=== PATIENT | female | born 1950 | race Caucasian/White ===

== ENCOUNTER → 2020-08-03 09:32 | Outpatient (CLI) | payer MEDICARE, OTHER, SELFPAY ==
[2020-08-03 12:22] LABS: Vitamin D,25 Hydroxy 48.6 ng/mL
[2020-08-03 12:32] LABS: ALB/GLOB Ratio 1.1 RATIO (0.9-2.4); AST(SGOT) 20 U/L (15-37); Alanine Aminotransfer ALT/SGPT 29 U/L (13-56); Alkaline Phosphatase 83 U/L (45-117); Anion Gap 6 (5-15); BUN 14 mg/dL (7-18); Calcium,Total 8.9 mg/dL (8.5-10.1); Chloride 99 mmol/L (98-107); Cholesterol 275 mg/dL (200); Creatinine, Serum 0.58 mg/dL (0.55-1.02); EST Glomerular Filtration Rate 109 mL/min (>60); Est Glom Filt Rate - Afr Amer 132 mL/min (>60); Globulin 3.6 g/dL (2.2-4.2); Glucose 107 mg/dL (74-106); High Density Lipoprotein 104 mg/dL; Potassium 3.5 mmol/L (3.5-5.1); Protein, Total 7.6 g/dL (6.4-8.2); Sodium Level 134 mmol/L (136-145); Thyroid Stim Hormone (TSH) 4.05 uIU/mL (0.358-3.74); Triglycerides 75 mg/dL; Very Low Density Lipoprotein 15 mg/dL (5-40)
[2020-08-03 12:33] LABS: Microalbumin,Random Urine 6.1 mg/L (NO RANGE EST.); Microalbumin:Creatinine Ratio 40.9 mg/g CRE (<30 mg/g CRE)
[2020-08-03 12:55] LABS: PTHIN 51.9 pg/mL (18.4-80.1)
[2020-08-09 10:06] LABS: T4 Free Direct 1.09 ng/dL (0.76-1.46)
== END ==
PROVIDERS: PCP Family Medicine; Referring Provider Family Medicine; Visit Provider Family Medicine
DX: M81.0 Age-related osteoporosis without current pathological fracture (principal); I10 Essential (primary) hypertension; E78.00 Pure hypercholesterolemia, unspecified
CPT/HCPCS: 36415; 80053; 80061; 82043; 82306; 82570; 83970; 84439; 84443

== ENCOUNTER 2020-09-24 12:35 | Outpatient (RCR) | payer MEDICARE, OTHER, SELFPAY | END 2020-10-29 23:59 | LOC: IMMUN 12:35 | PROVIDERS: PCP Family Medicine; Referring Provider Family Medicine; Visit Provider Family Medicine | DX: Z23 Encounter for immunization (principal) | CPT/HCPCS: 0001A; 91300 ==

== ENCOUNTER → 2020-11-03 08:39 | Outpatient (CLI) | payer MEDICARE, OTHER, SELFPAY ==
[2020-11-03 10:54] LABS: Anion Gap 8 (5-15); BUN 22 mg/dL (7-18); BUN/Creat Ratio 32.8 RATIO (10-20); Chloride 98 mmol/L (98-107); Creatinine, Serum 0.67 mg/dL (0.55-1.02); EST Glomerular Filtration Rate 93 mL/min (>60); Est Glom Filt Rate - Afr Amer 112 mL/min (>60); Glucose 118 mg/dL (74-106); Potassium 3.6 mmol/L (3.5-5.1); Sodium Level 134 mmol/L (136-145); T4 Free Direct 1.04 ng/dL (0.76-1.46); Thyroid Stim Hormone (TSH) 3.35 uIU/mL (0.358-3.74)
[2020-11-03 11:03] LABS: Microalbumin,Random Urine 6.4 mg/L (NO RANGE EST.); Microalbumin:Creatinine Ratio 8.6 mg/g CRE (<30 mg/g CRE)
== END ==
PROVIDERS: PCP Family Medicine; Visit Provider Family Medicine
DX: I10 Essential (primary) hypertension (principal); R80.9 Proteinuria, unspecified; R79.89 Other specified abnormal findings of blood chemistry
CPT/HCPCS: 36415; 80048; 82043; 82570; 84439; 84443

== ENCOUNTER → 2021-10-11 | Outpatient (CLI) | payer MEDICARE, OTHER, SELFPAY ==
[2021-10-11 13:50] LABS: Mucous, Urine 0 SEEN /hpf (<or=2+)
[2021-10-11 15:03] LABS: Color, Urine Yellow (Yellow); Glucose, Dipstick Normal (Normal); Ketone-Dipstick Negative (Negative); Leukocyte Esterase-Dipstick 500 /ul (Negative); Nitrite-Dipstick Negative (Negative); Occult Blood-Urine 250 /ul (Negative); Protein-Dipstick 30 mg/dl (Negative); Urine Bilirubin Dipstick Negative (Negative); Urine Clarity Cloudy (Clear); Urine Urobilinogen Normal (Normal)
[2021-10-11 15:19] LABS: Bacteria 1+ /hpf (None Seen); Red Blood Cells-Urine 5-10 SEEN /hpf (0-5); Squamous Epithelial Cells - UA 0-5 SEEN /hpf (5-10); White Blood Cells 25-50 SEEN /hpf (0-5)
== END | disposition home or self-care (01) ==
LOC: LABSPEC 13:48
PROVIDERS: PCP Family Medicine; Referring Provider Family Medicine; Visit Provider Family Medicine
DX: R35.0 Frequency of micturition (principal)
CPT/HCPCS: 81001; 87086; 87088; 87186

== ENCOUNTER → 2021-10-26 | Outpatient (CLI) | payer MEDICARE, OTHER, SELFPAY ==
[2021-10-26 10:38] LABS: Vitamin D,25 Hydroxy 135.5 ng/mL
[2021-10-26 10:48] LABS: ALB/GLOB Ratio 1.2 RATIO (0.9-2.4); AST(SGOT) 28 U/L (15-37); Alanine Aminotransfer ALT/SGPT 35 U/L (13-56); Albumin, Serum 4.1 g/dL (3.2-5.0); Alkaline Phosphatase 70 U/L (45-117); Anion Gap 7 (5-15); BUN 16 mg/dL (7-18); BUN/Creat Ratio 26.6 RATIO (10-20); Calcium,Total 9.4 mg/dL (8.5-10.1); Chloride 99 mmol/L (98-107); Cholesterol 282 mg/dL (200); EST Glomerular Filtration Rate 105 mL/min (>60); Est Glom Filt Rate - Afr Amer 127 mL/min (>60); Globulin 3.5 g/dL (2.2-4.2); Glucose 105 mg/dL (74-106); High Density Lipoprotein 78 mg/dL; Magnesium 2.2 mg/dL (1.6-2.6); Potassium 3.6 mmol/L (3.5-5.1); Protein, Total 7.6 g/dL (6.4-8.2); Sodium Level 134 mmol/L (136-145); Triglycerides 60 mg/dL; Very Low Density Lipoprotein 12 mg/dL (5-40)
== END | disposition home or self-care (01) ==
LOC: MFPLAB 09:26
PROVIDERS: PCP Family Medicine; Referring Provider Family Medicine; Visit Provider Family Medicine
DX: I10 Essential (primary) hypertension (principal); M81.0 Age-related osteoporosis without current pathological fracture; R80.9 Proteinuria, unspecified
CPT/HCPCS: 36415; 80053; 80061; 82306; 83735

== ENCOUNTER → 2021-10-27 | Outpatient (CLI) | payer MEDICARE, OTHER, SELFPAY ==
[2021-10-27 18:13] LABS: Creatinine, Urine (random) < 13.00 mg/dL (NO RANGE EST.); Microalbumin,Random Urine < 5.0 mg/L (NO RANGE EST.)
== END | disposition home or self-care (01) ==
LOC: MFPLAB 16:53
PROVIDERS: PCP Family Medicine; Referring Provider Family Medicine; Visit Provider Family Medicine
DX: I10 Essential (primary) hypertension (principal)
CPT/HCPCS: 82043; 82570

== ENCOUNTER 2021-11-29 15:39 | Emergency (ER) | payer MEDICARE, OTHER, SELFPAY ==
[2021-11-29 15:41] VITALS: BP 172/88; PULSE 99; RESP 16; TEMP 37.2; O2SAT 99; BMI 25.7
--- NOTE | 2021-11-29 15:56 | CT_ITS ---
EXAM: CT ANGIOGRAPHY CHEST WITHOUT AND WITH INTRAVENOUS CONTRAST CLINICAL INDICATION: pulmonary embolism TECHNIQUE: Helically acquired angiography images were obtained of the chest without and with intravenous contrast. This CT exam was performed using one or more of the following dose reduction techniques: automated exposure control, adjustment of the mA and/or kV according to patient size, and/or use of iterative reconstruction technique. This report was created using [employer] report generation technology. MIP reconstructed images were created and reviewed. CONTRAST: IV 100mL [id number] COMPARISON: None. FINDINGS: PULMONARY ARTERIES: Unremarkable. Normal in caliber. No evidence of pulmonary embolism. AORTA: Unremarkable. Normal in caliber. No evidence of dissection. GREAT VESSELS OF AORTIC ARCH: Unremarkable. Normal in caliber. No evidence of dissection. LUNGS AND PLEURAL SPACES: Unremarkable. No mass. No consolidation or edema. No pleural effusion or thickening. No pneumothorax. HEART: Unremarkable. Heart size is normal. No pericardial effusion. No signs of right heart strain, ratio of right ventricle to left ventricle measures less than 1. MEDIASTINUM: Unremarkable. No mediastinal or hilar adenopathy. Esophagus is unremarkable. No hiatal hernia. THYROID: Unremarkable. No thyroid lesions. BONES/JOINTS: Unremarkable. No suspicious lytic or blastic abnormality. CT/CTA Chest W/WO Contrast IMPRESSION: Negative CTA chest. Electronically Signed: Fercho Burgess MD at 17:58 EDT ,
--- NOTE | 2021-11-29 15:56 | EKG12_ITS ---
Test Reason : Blood Pressure : / mmHG Vent. Rate : 087 BPM Atrial Rate : 087 BPM P-R Int : 186 ms QRS Dur : 086 ms QT Int : 362 ms P-R-T Axes : 068 -07 042 degrees QTc Int : 435 ms Normal sinus rhythm Possible Left atrial enlargement Borderline ECG Confirmed by INES BUSH, DESTIN ([id number]), fashion editor ELIAS CALHOUN ([id number]) on 12/01/2021 12:56:31 PM Referred By: Tennille Confirmed By:DESTIN CHACON MD
--- NOTE | 2021-11-29 15:57 | ED.VIS.CHEST ---
HPI History of Present Illness Chief Complaint: Diarrhea Informant: patient and spouse/S.O. Narrative Narrative: 71-year old female presenting to the emergency room with COVID-19 concerns. Patient states she tested positive on the . She had been having sore throat for least a week before that but her test were negative. She has subsequently developed diarrhea each morning until today when it has been most of the day. She also notes a cough and chest tightness. She states that she had asthma years ago but has not needed any treatment in the subsequent years. She denies any prior DVT or PE. She has been drinking fluids but solid intake has been diminished. She did to have some Imodium today. [facility] Medical History COVID-19 HTN (hypertension) Home Medications ondansetron 4 mg disintegrating tablet 4 mg PO Q6H PRN PRN Nausea #15 tabs 11/29/21 [Rx Last Taken Unknown] Allergy/AdvReac Type Severity Reaction Status Date / Time lisinopril Allergy Hives Verified 11/29/21 15:44 Sulfa (Sulfonamide Allergy Hives Verified 11/29/21 15:44 Antibiotics) Social History (Updated 11/29/21 @ 15:[address] Enrico Buckner DO) current gender identity: female Smoking Status: Never smoker substance use type: does not use ROS ROS ED Constitutional Constitutional ED: Denies chills or weight loss Eyes Eyes: Denies change in vision or diplopia ENT ENT ED: Denies ear pain, rhinorrhea or sore throat Cardiovascular Cardiovascular: Reports as per HPI; Denies chest pain, orthopnea, palpitations or racing heartbeat Respiratory/Chest Respiratory/Chest: Reports cough; Denies dyspnea or orthopnea Gastrointestinal Gastrointestinal: Reports diarrhea and nausea; Denies abdominal pain or vomiting Genitourinary Genitourinary ED: Denies dysuria, hematuria or urinary frequency Musculoskeletal Musculoskeletal: Denies arthralgias or myalgias Integumentary Denies abscess or rash Neurologic Neurologic: Denies headache(s) or weakness Psychiatric Psychiatric: Denies anxiety, depression, suicidal ideation or suicidal thoughts Endocrine Endocrinology: Denies polydipsia, polyphagia or polyuria Allergic/Immunologic Allergic/Immunologic ED: Denies mouth swelling, tongue swelling or urticaria EXAM Physical Exam Const Vital Signs: 11/29/21 15:41 11/29/21 15:52 11/29/21 17:45 Temperature 99 F 96.6 F L Temperature Source Temporal Temporal Pulse Rate 99 91 Respiratory Rate 16 18 Respiratory Effort Normal Non-Labored Respiratory Pattern Normal Blood Pressure 172/88 H 137/67 H Blood Pressure Mean 116 90 Pulse Ox 99 96 Oxygen Delivery Method Room Air Room Air Positive well nourished and well developed General Appearance ED: well developed HEENT Reports normocephalic, head/scalp atraumatic and moist mucous membranes Eyes PERRL and EOMs intact bilaterally Neck no lymphadenopathy, supple and no JVD Resp normal respiratory effort and clear to auscultation bilaterally Cardio regular rhythm and no murmurs Rate: tachycardic GI normal to inspection, nondistended, normoactive bowel sounds and non-tender Palpation: soft Back/Spine no CVA tenderness and normal ROM Extremity normal to inspection General Extremety ED: Negative for edema General Extremity: Negative for edema Neuro oriented x3 and CN's II-XII intact bilaterally Sensorium / Orientation: alert Motor Exam: strength 5/5 throughout Psych mental status grossly normal Mood & Affect: Negative for depressed or tearful Skin no rashes or lesions noted and no wounds MDM MDM MDM Narrative Medical decision making narrative: White count 5.2 platelet count 199 hemoglobin 12.7. Sodium returned slightly low at 125. Potassium is normal. CTA of the chest demonstrates no pulmonary embolism or infiltrates. Patient received IV fluids I will write for Zofran at home. Continued supportive care Lab Data Attestation: I reviewed the patient's lab results. Labs: Laboratory Results - last 24 hr 11/29/21 11/29/21 16:10 16:10 WBC 5.2 RBC 4.03 L Hgb 12.7 Hct 35.7 L MCV 88.6 MCH 31.5 MCHC 35.6 RDW Std Deviation 38.2 RDW Coeff of Misti 11.9 Plt Count 199 MPV 9.9 Immature Gran % (Auto) 0.400 Neut % (Auto) 81.3 H Lymph % (Auto) 13.1 L Calvert % (Auto) 4.6 Eos % (Auto) 0.4 Baso % (Auto) 0.2 Absolute Neuts (auto) 4.2 Absolute Lymphs (auto) 0.68 L Nucleated RBC % 0 Sodium 125 L Potassium 3.8 Chloride 92 L Carbon Dioxide 24.0 Anion Gap 9 BUN 11 Creatinine 0.67 Estim Creat Clear Calc 45.85 Est GFR (MDRD) Af Amer 113 Est GFR (MDRD) Non-Af 93 BUN/Creatinine Ratio 16.5 Glucose 129 H Calcium 9.2 Total Bilirubin 0.90 AST 34 ALT 35 Alkaline Phosphatase 76 Troponin I High Sens 7 Total Protein 7.5 Albumin 4.0 Globulin 3.5 Albumin/Globulin Ratio 1.1 Radiography Diagnostic Testing: Clinical Impression(s) from Imaging Studies Chest CTA 11/29/21 15:56 IMPRESSION: Negative CTA chest. Electronically Signed: Fercho Burgess MD at 17:58 EDT , EKG Initial EKG: Attestation: I personally reviewed and interpreted this EKG as follows: Comments: Normal sinus rhythm with a ventricular rate of 87 bpm. Discharge Plan Triage Chief Complaint: Diarrhea Other Complaint: Chest Other ED Provider: Enrico Buckner Dx/Rx/DC Orders Clinical Impression: COVID-19, Chest tightness, Diarrhea, Nausea Instructions: Coronavirus Disease 2019 (COVID-19): Caring for Yourself or Others Prescriptions: New ondansetron [ondansetron] 4 mg tablet,disintegrating 4 mg PO Q6H PRN PRN (Reason: Nausea) Qty: 15 0RF Primary Care Provider: Jimbo Ball Referrals: Jimbo Ball MD [Primary Care Provider] - As Needed Disposition Disposition: Home, Self Care
--- NOTE | 2021-11-29 15:59 | NURSING ---
NO OLD EKGS
[2021-11-29] MEDS: 0.9% Normal Saline 1,000 ML 1000 ML IV (16:16)
[2021-11-29 16:17] LABS: Absolute Lymphocyte Count 0.68 X10^3/uL (0.83-4.51); Absolute Neutrophil Count 4.2 X10^3/uL (2.0-7.7); Basophil# 0.01 X10^3/uL; Basophil% 0.2 % (0-1); Eosinophil# 0.02 X10^3/uL; Eosinophils% 0.4 % (0-5); Hematocrit 35.7 % (37-47); Hemoglobin 12.7 g/dL (12.0-15.0); Lymphocyte # 0.68 X10^3/ul (0.83-4.51); Lymphocyte % 13.1 % (19-41); Mean Corp Hgb Conc 35.6 g/dL (32-36); Mean Corpuscular Hgb 31.5 pg (27.0-32.0); Mean Corpuscular Volume 88.6 fL (81-99); Mean Platelet Vol. 9.9 fl (6.2-12.0); Monocyte# 0.24 X10^3/uL; Monocyte% 4.6 % (0-10); NRBC Flagged by Analyzer 0 % (0-5); Neutrophil # 4.21 X10^3/uL (2.7-7.7); Neutrophil % 81.3 % (47-70); Platelet Count 199 K/mm3 (150-450); RBC Distribution Width CV 11.9 % (11.6-14.6); RBC Distribution Width SD 38.2 fl (35.1-43.9); Red Blood Count 4.03 M/mm3 (4.2-5.4); White Blood Count 5.2 K/mm3 (4.4-11.0)
[2021-11-29 16:34] LABS: ALB/GLOB Ratio 1.1 RATIO (0.9-2.4); AST(SGOT) 34 U/L (15-37); Alanine Aminotransfer ALT/SGPT 35 U/L (13-56); Alkaline Phosphatase 76 U/L (45-117); Anion Gap 9 (5-15); BUN 11 mg/dL (7-18); BUN/Creat Ratio 16.5 RATIO (10-20); Calcium,Total 9.2 mg/dL (8.5-10.1); Chloride 92 mmol/L (98-107); Creatinine, Serum 0.67 mg/dL (0.55-1.02); EST Glomerular Filtration Rate 93 mL/min (>60); Est Glom Filt Rate - Afr Amer 113 mL/min (>60); Estimated Creatinine Clearance 45.85 ml/min; Globulin 3.5 g/dL (2.2-4.2); Glucose 129 mg/dL (74-106); Potassium 3.8 mmol/L (3.5-5.1); Protein, Total 7.5 g/dL (6.4-8.2); Sodium Level 125 mmol/L (136-145); Troponin-I HS 7 pg/mL (3.0-54.0)
[2021-11-29 17:45] VITALS: BP 137/67; PULSE 91; RESP 18; TEMP 35.9; O2SAT 96
[2021-11-29] MEDS: Ondansetron ODT 4 MG Tablet PO (18:19)
[2021-11-29 18:24] VITALS: BP 124/69; PULSE 72; RESP 15; O2SAT 98
== END 2021-11-29 18:25 | disposition home or self-care (01) ==
PROVIDERS: Emergency Provider Emergency Medicine; PCP Family Medicine; Visit Provider Emergency Medicine
DX: U07.1 COVID-19 (principal); R07.89 Other chest pain
CPT/HCPCS: 36415; 71275; 80053; 84484; 85025; 93005; 96360; 99283; J7030; Q9967; A4216

== ENCOUNTER → 2022-01-02 | Outpatient (CLI) | payer MEDICARE, OTHER, SELFPAY ==
[2022-01-02 11:00] LABS: Bacteria 0 SEEN /hpf (None Seen); Mucous, Urine 0 SEEN /hpf (<or=2+); Squamous Epithelial Cells - UA 0 SEEN /hpf (5-10)
[2022-01-02 12:27] LABS: Color, Urine Yellow (Yellow); Glucose, Dipstick Normal (Normal); Ketone-Dipstick Negative (Negative); Leukocyte Esterase-Dipstick 500 /ul (Negative); Nitrite-Dipstick Negative (Negative); Occult Blood-Urine 50 /ul (Negative); Protein-Dipstick Negative (Negative); Specific Gravity, Urine 1.005 (1.002-1.030); Urine Bilirubin Dipstick Negative (Negative); Urine Clarity Clear (Clear); Urine Urobilinogen Normal (Normal)
[2022-01-02 12:47] LABS: Red Blood Cells-Urine 0-5 SEEN /hpf (0-5)
[2022-01-02 12:48] LABS: White Blood Cells 10-25 SEEN /hpf (0-5)
== END | disposition home or self-care (01) ==
PROVIDERS: PCP Family Medicine; Referring Provider Family Medicine; Visit Provider Family Medicine
DX: R30.0 Dysuria (principal)
CPT/HCPCS: 81001; 87086

== ENCOUNTER → 2022-03-20 | Outpatient (CLI) | payer MEDICARE, OTHER, SELFPAY ==
[2022-03-20 15:56] LABS: Vitamin D,25 Hydroxy 46.3 ng/mL
[2022-03-20 15:57] LABS: ALB/GLOB Ratio 1.1 RATIO (0.9-2.4); AST(SGOT) 21 U/L (15-37); Alanine Aminotransfer ALT/SGPT 34 U/L (13-56); Albumin, Serum 3.9 g/dL (3.2-5.0); Alkaline Phosphatase 82 U/L (45-117); Anion Gap 7 (5-15); BUN 18 mg/dL (7-18); BUN/Creat Ratio 17.6 RATIO (10-20); Calcium,Total 9.2 mg/dL (8.5-10.1); Chloride 101 mmol/L (98-107); Creatinine, Serum 1.02 mg/dL (0.55-1.02); EST Glomerular Filtration Rate 57 mL/min (>60); Est Glom Filt Rate - Afr Amer 69 mL/min (>60); Globulin 3.7 g/dL (2.2-4.2); Glucose 94 mg/dL (74-106); Potassium 3.9 mmol/L (3.5-5.1); Protein, Total 7.6 g/dL (6.4-8.2); Sodium Level 135 mmol/L (136-145)
== END | disposition home or self-care (01) ==
LOC: MFPLAB 11:28
PROVIDERS: PCP Family Medicine; Referring Provider Family Medicine; Visit Provider Family Medicine
DX: I10 Essential (primary) hypertension (principal); M81.0 Age-related osteoporosis without current pathological fracture; E55.9 Vitamin D deficiency, unspecified; E78.00 Pure hypercholesterolemia, unspecified
CPT/HCPCS: 36415; 80053; 82306

== ENCOUNTER → 2022-03-23 | Outpatient (CLI) | payer MEDICARE, OTHER, SELFPAY ==
[2022-03-23 17:58] LABS: Mucous, Urine 0 SEEN /hpf (<or=2+)
[2022-03-23 18:30] LABS: Color, Urine Yellow (Yellow); Glucose, Dipstick Normal (Normal); Ketone-Dipstick Negative (Negative); Leukocyte Esterase-Dipstick 500 /ul (Negative); Nitrite-Dipstick Negative (Negative); Occult Blood-Urine 50 /ul (Negative); Protein-Dipstick 30 mg/dl (Negative); Urine Bilirubin Dipstick Negative (Negative); Urine Clarity Sl. Cloudy (Clear); Urine Urobilinogen Normal (Normal); Urine pH 6.5 (5.0 - 8.0)
[2022-03-23 18:39] LABS: Bacteria RARE /hpf (None Seen); Red Blood Cells-Urine 0-5 SEEN /hpf (0-5); Squamous Epithelial Cells - UA 5-10 SEEN /hpf (5-10); White Blood Cells 50-100 SEEN /hpf (0-5)
[2022-03-23 18:40] LABS: Amorphous Sediment 1+ URATE; Transitional Epithelial - Ur 0-5 SEEN /hpf (0-5)
== END | disposition home or self-care (01) ==
PROVIDERS: PCP Family Medicine; Visit Provider Nurse Practitioner Family
DX: N39.0 Urinary tract infection, site not specified (principal)
CPT/HCPCS: 81001; 87086; 87088; 87186

== ENCOUNTER → 2022-06-22 | Outpatient (CLI) | payer MEDICARE, OTHER, SELFPAY ==
--- NOTE | 2022-06-22 13:29 | BI_ITS ---
MAMMOGRAPHY - BILATERAL SCREENING REASON FOR EXAM: Female, 72 years old. Routine annual screening examination. PERTINENT HISTORY: Non-contributory. TECHNIQUE: Digital bilateral breast john paul (3D mammographic acquisition) in the CC and MLO projections. 2-D mediolateral oblique (MLO) and craniocaudad (CC) views of both breasts were obtained. CAD: Full Field Digital Mammography with Computer Added Detection was performed. COMPARISON: No comparison mammograms available at this time. If any prior films become available, an addendum to this report can be generated. FINDINGS: Breast Composition: The breasts are heterogeneously dense, which may obscure small masses. There are no dominant masses or suspicious calcifications. No other significant abnormalities are identified. BI/SCRN MAMM (CAD)W/JOHN PAUL BILAT IMPRESSION: Negative screening mammogram. Yearly followup mammogram recommended. (A) ASSESSMENT CATEGORY: BIRADS Category 1: Negative. A letter regarding these results will be sent to the patient by the facility within 30 days. Approximately 10% of breast cancers are not detected by mammography. A normal mammogram should not delay biopsy of a clinically suspicious abnormality. [id number] Electronically Signed: Jason Carty MD at 17:04 EST ,
--- NOTE | 2022-06-22 13:36 | BD_ITS ---
STUDY: DUAL ENERGY X-RAY ABSORPTIOMETRY / DXA REASON FOR EXAM: Female, 72 years old. [id number] TECHNIQUE: Bone Mineral Density (BMD) measurements of lumbar spine and bilateral hips were obtained. COMPARISON: None. FINDINGS: Lumbar Spine (L1-L4): g/cm2 (0.876) / T-score (-1.6) / Z-score (0.6) Findings are suggestive of osteopenia with a moderate fracture risk. Left Femur Total: g/cm2 (0.686) / T-score (-2.1) / Z-score (-0.6) Left Femoral Neck: g/cm2 (0.586) / T-score (-2.4) / Z-score (-0.6) Right Femur Total: g/cm2 (0.721) / T-score (-1.8) / Z-score (-0.3) Right Femoral Neck: g/cm2 (0.606) / T-score (-2.2) / Z-score (-0.4) BD/Dexa Bone Density Study IMPRESSION: The patient is considered osteopenic as outlined below according to World [employer] Organization (WHO) criteria with a high fracture risk. Reference Information: The T-score is the number of standard deviations above or below the standard which is normal for young adults at their peak bone mineral density. The World Health Organization (WHO) interprets the T-scores as follows: Above -1 Normal bone density Between -1 and -2.5 Osteopenia Equal to / or below -2.5 Osteoporosis As a practical clinical guideline, osteopenia may be graded as follows: Mild -1 through -1.5 Moderate -1.6 through -2.0 Severe -2.1 through -2.4 The Z-score is the number of standard deviations above or below age-matched controls. A Z-score of less than -1.5 would be considered abnormal. References: 1. NIH Osteoporosis and Related Bone Diseases www osteo.org 2. International Society for Clinical Densitometry www iscd.org 3. National Osteoporosis Foundation www nof.org Electronically Signed: Jason Carty MD at 13:59 EST ,
== END | disposition home or self-care (01) ==
LOC: OPBD 13:26
PROVIDERS: PCP Family Medicine; Visit Provider Nurse Practitioner Family
DX: M81.0 Age-related osteoporosis without current pathological fracture (principal); Z12.31 Encounter for screening mammogram for malignant neoplasm of breast
CPT/HCPCS: 77063; 77067; 77080

== ENCOUNTER → 2023-04-26 | Outpatient (CLI) | payer MEDICARE, OTHER, SELFPAY ==
--- NOTE | 2023-04-26 11:13 | RAD_ITS ---
EXAM: XR RIGHT ANKLE COMPLETE, 3 OR MORE VIEWS CLINICAL INDICATION: Right ankle injury TECHNIQUE: Frontal, lateral and oblique views of the right ankle. COMPARISON: No relevant prior studies available. FINDINGS: BONES/JOINTS: Unremarkable. No acute fracture. No subluxation. Normal alignment. Preservation of the joint space. No sclerotic or destructive changes observed. SOFT TISSUES: There is soft tissue swelling over the lateral. No radiopaque foreign body. RAD/Ankle min 3 Views IMPRESSION: Soft tissue swelling with no osseous abnormality. Electronically Signed: Fercho Burgess MD at 23:51 EST ,
== END | disposition home or self-care (01) ==
LOC: MTRAD 11:13
PROVIDERS: PCP Family Medicine; Referring Provider Family Medicine; Visit Provider Family Medicine
DX: S99.911A Unspecified injury of right ankle, initial encounter (principal); X58.XXXA Exposure to other specified factors, initial encounter
CPT/HCPCS: 73610

== ENCOUNTER → 2023-06-04 | Outpatient (CLI) | payer MEDICARE, OTHER, SELFPAY ==
--- OUTSIDE RECORDS SUMMARY | 2023-06-04 12:29 | XMS RPT_ITS | CCD ---
Author Name Unknown Address [address] [place] [address] [id number] [place] [address] Organization [facility] Care Team Providers Care Economics Lecturer Name Role Phone Ti BUSH, Alin Arnett Primary Care Provider Allergies Allergy Classification Reported Allergen(s) Allergy Type Date of Onset Reaction(s) Facility (1 source) Lisinopril Drug Allergy 0 Other: See Comments [facility] Work Phone: (1 source) Sulfonamides (Antibiotic) Propensity to adverse reactions 6 Swelling [facility] Work Phone: Medications Completed/Discontinued Medications Medication Drug Class(es) Dates Sig (Normalized) Sig (Original) amLODIPine 5 mg oral tablet (1 source) Dihydropyridine Calcium Channel Zi Start: 02-11-2020 take 1 tablet by mouth once daily amLODIPine (NORVASC) 5 mg tablet Indications: Hypertension, essential Take 1 tablet by mouth once daily. 30 tablet 5 02/11/2020 Active Problems Problem Classification Problem Date Documented Da te Episodic/Chronic Essential hypertension (1 source) Essential hypertension; Translations: [Essential (primary) hypertension] Onset: 09-18-2018 09-18-2018 Chronic Osteoporosis (1 source) Osteoporosis; Translations: [Age-related osteoporosis without current pathological fracture] Onset: 12-11-2018 12-11-2018 Chronic Other screening for suspected conditions (not mental disorders or infectious disease) (1 source) Patient encounter status; Translations: [Encounter for screening mammogram for malignant neoplasm of breast] Episodic Encounters Encounter Date Encounter Type Care Provider Facility Start: 12-07-2021 ambulatory Alin Chatterjee MD Work Phone: [facility] [place] Procedures Date Procedure Procedure Detail Performing Clinician Start: 12-09-2018 Mammography Alin Pulido MD Work Phone: Start: 09-18-2018 Adult depression scr eening assessment Alin Chatterjee MD Work Phone: Plan of Treatment Date Care Activity Detail Author Start: 01-05-2025 LIPID SCREEN LIPID SCREEN [facility] Start: 01-05-2023 DIABETES SCREEN DIABETES SCREEN [facility] Start: 01-05-2022 Influenza vaccination INFLUENZA (#1) [facility] Start: 05-07-2021 ADVANCE DIRECTIVE DISCUSSION ADVANCE DIRECTIVE DISCUSSION [facility] Start: 01-14-2021 ANNUAL PCP TEAM CHRONIC DISEASE VISIT ANNUAL PCP TEAM CHRONIC DISEASE VISIT [facility] Start: 12-10-2019 Mammography MAMMOGRAM [facility] Start: 09-19-2019 Adult depression screening assessment DEPRESSION SCREENING [facility] Start: 2017 PNEUMOCOCCAL: 65+ (1 - PCV) PNEUMOCOCCAL: 65+ (1 - PCV) [facility] Start: 2002 SHINGRIX VACCINE (1 of 2) SHINGRIX VACCINE (1 of 2) [facility] Start: 1997 COLOGUARD (FIT-DNA) COLOGUARD (FIT-DNA) [facility] Start: 1997 Colonoscopy COLONOSCOPY [facility] Start: 1997 COLORECTAL CANCER SCREENING COLORECTAL CANCER SCREENING [facility] Start: [address] COLONOGRAPHY [facility] Start: 1997 FECAL OCCULT BLOOD FECAL OCCULT BLOOD [facility] Start: 1997 SIGMOIDOSCOPY SIGMOIDOSCOPY [facility] Start: 1971 Urine microalbumin profile DTAP,TDAP,TD (1 - Tdap) [facility] Start: 1970 BP CONTROLLED (<130/80) BP CONTROLLED (<130/80) [facility] Start: 1970 HEPATITIS C SCREENING HEPATITIS C SCREENING [facility] Start: 1950 COVID-19 VACCINE (#1) COVID-19 VACCINE (#1) [facility] End: 01-06-2023 Screening mammography bi 2-view breast inc cad TRELL SCREENING Radiology Routine Encounter for screening mammogram for breast cancer 1 Occurrences starting 12/07/2021 until 01/06/2023 [facility] Work Phone: Payers Date Payer Category Payer Private Health Insurance [employer] A ETNA MEDICARE SUPPLEMENT [id number] 2019-Present [phone] [address] [address] [place] [address] Indemnity [id number] 2017 Medicare MEDICARE MEDICAR E A AND B [id number] 2017-Present [phone] [address] [address] [place] [address] Medicare [id number] Social History Date Type Detail Facility Start: 08-04-2011 Tobacco smoking stat [facility] Never smoked tobacco [facility] Start: 08-04-2011 Tobacco use and exposure Smoke less tobacco non-user [facility] Start: 02-09-2020 Alcohol intake Current drinke r of alcohol (finding) [facility] Start: 01-15-2020 History SDOH Alcohol Frequency 1 [facility] Start: 05-15-2018 History SDOH Alcohol Comment wine very rarely [facility] Start: 01-15-2020 History SDOH Social Connections Phone 5 [facility] Start: 01-15-2020 History SDOH Social Connections Get Together 98 [facility] Start: 01-15-2020 History SDOH Social Connections Membership 2 [facility] Start: 01-15-2020 History SDOH Social Connections Living 3 [facility] Start: 01-15-2020 Education 12 [facility] Start: 1950 Sex Assigned At Female [facility] Work Phone: Clinical Note 12-07-2021 Note Date & Type Note Facility 12-07-2021 Note Patient Outreach (IN TMMN) HARLEY MITCHELL ([id number]) 1950 F Date Time Provider Department 12/07/21 ALIN CHATTERJEE During your visit today, we recorded the following information about you: Allergies As of Date: 12/07/2021 Noted Allergy Reaction LISINOPRIL 02/11/2020 14 - Other: See Comments Comments: Tingling sensation. SULFA (SULFONAMIDE ANTIBIOTICS) 07/13/2005 7 - Swelling Date Reviewed: 01/26/2020 Reviewed by: Bernadette Henley Ma - Fully Assessed Visit Diagnosis:Encounter for screening mammogram for breast cancer [Z12.31] Order(s):[facility] SCREENING [[id number]] Order #: [id number] FUTURE Prescriptions as of 12/12/2021 - amLODIPine (NORVASC) 5 mg tablet Take 1 tablet by mouth once daily. - lisinopril (ZESTRIL,PRINIVIL) 30 mg tablet Take 1 tablet by mouth once daily. - cholecalciferol, vitD3,/vit K2 (VITAMIN D3-VITAMIN K2 ORAL) Take by mouth. - calcium carbonate-vitamin D3 (OSCAL+D) 500 mg(1,250mg) -400 unit chewable tablet Take 1 tablet by mouth twice daily. Problem List As Of Date 12/07/2021 Noted Resolved Hypertension, essential [I10] 09/18/2018 Osteoporosis [M81.0] 12/11/2018 Encounter Status:Closed by KAVIN MARSHALL on 12/12/21 [facility] Clinical Note 04-05-2021 Note Date & Type Note Facility 04-05-2021 Note Patient Outreach (CHARITO TNAV) HARLEY MITCHELL ([id number]) 1950 F Date Time Provider Department 04/05/21 GILL RAY During your visit today, we recorded the following information about you: Gill Ray 04/05/2021 10:00 AM Signed POPULATION HEALTH NAVIGATION OUTREACH Action/ 1st attempt: Left message for patient including my direct number 2nd attempt: My Chart message sent Care Gaps BP control Colorectal cancer screening Flu shot Annual PCP exam Mammogram Contact made with patient or family member? NO Pt identified by name and : NO Outreach Outcome/Action Unable to reach patient: Left message [facility] message sent Reason for Outreach Care Gap or Scheduling/Wellness visits Payer: Payor: MEDICARE / Plan: MEDICARE A AND B / Product Type: Medicare / Care Gap Reviewed:: Annual Wellness visit Breast Cancer screening Controlling Blood Pressure Colorectal Cancer Screening Flu vaccine Reminder: Reminder note to check Health Maintenance for items below Health Maintenance items due: COVID-19 VACCINE(1) Never done HEPATITIS C SCREENING Never done BP CONTROLLED (<130/80) Never done DTAP,TDAP,TD(1 - Tdap) Never done COLORECTAL CANCER SCREENING Never done SHINGRIX VACCINE(1 of 2) Never done DEPRESSION SCREENING due on 09/19/2019 MAMMOGRAM due on 12/10/2019 INFLUENZA(1) Never done ANNUAL PCP TEAM CHRONIC DISEASE VISIT due on 01/14/2021 Advanced Directives Completed: Have you ever planned for future healthcare decisions with a power of county attorney, living will, or advance directives? No. Please bring a copy to your next appointment or email to [email or web address] Referrals: N/A Message Sent to Practice: NO Navigation Signature: Gill Ray April 05, 2021 9:58 AM Allergies As of Date: 04/05/2021 Noted Allergy Reaction LISINOPRIL 02/11/2020 14 - Other: See Comments Comments: Tingling sensation. SULFA (SULFONAMIDE ANTIBIOTICS) 07/13/2005 7 - Swelling Date Reviewed: 01/26/2020 Reviewed by: Bernadette Henley Ma - Fully Assessed Reason for Visit: Population Health Navigation Outreach [3910] Cmt: ACO Care Gaps Prescriptions as of 04/05/2021 - amLODIPine (NORVASC) 5 mg tablet Take 1 tablet by mouth once daily. - lisinopril (ZESTRIL,PRINIVIL) 30 mg tablet Take 1 tablet by mouth once daily. - cholecalciferol, vitD3,/vit K2 (VITAMIN D3-VITAMIN K2 ORAL) Take by mouth. - calcium carbonate-vitamin D3 (OSCAL+D) 500 mg(1,250mg) -400 unit chewable tablet Take 1 tablet by mouth twice daily. Problem List As Of Date 04/05/2021 Noted Resolved Hypertension, essential [I10] 09/18/2018 Osteoporosis [M81.0] 12/11/2018 Encounter Status:Closed by GILL RAY on 04/05/21 [facility] 04-05-2021 Note Date & Type Note Facility 04-05-2021 Note HNO ID: [id number] Author: Gill Ray Service: ? Author Type: ? Type: Progress Notes Filed: 04/05/2021 10:00 AM Note Text: POPULATION HEALTH NAVIGATION OUTREACH Action/FYI 1st attempt: Left message for patient including my direct number 2nd attempt: My Chart message sent Care Gaps BP control Colorectal cancer screening Flu shot Annual PCP exam Mammogram Contact made with patient or family member? NO Pt identified by name and : NO Outreach Outcome/Action Unable to reach patient: Left message MyChart message sent Reason for Outreach Care Gap or Scheduling/Wellness visits Payer: Payor: MEDICARE / Plan: MEDICARE A AND B / Product Type: Medicare / Care Gap Reviewed:: Annual Wellness visit Breast Cancer screening Controlling Blood Pressure Colorectal Cancer Screening Flu vaccine Reminder: Reminder note to check Health Maintenance for items below Health Maintenance items due: COVID-19 VACCINE(1) Never done HEPATITIS C SCREENING Never done BP CONTROLLED (<130/80) Never done DTAP,TDAP,TD(1 - Tdap) Never done COLORECTAL CANCER SCREENING Never done SHINGRIX VACCINE(1 of 2) Never done DEPRESSION SCREENING due on 09/19/2019 MAMMOGRAM due on 12/10/2019 INFLUENZA(1) Never done ANNUAL PCP TEAM CHRONIC DISEASE VISIT due on 01/14/2021 Advanced Directives Completed: Have you ever planned for future healthcare decisions with a power of county attorney, living will, or advance directives? No. Please bring a copy to your next appointment or email to Referrals: N/A Message Sent to Practice: NO Navigation Signature: Gill Ray April 05, 2021 9:58 AM [facility] 01-26-2021 Note Date & Type Note Facility 01-26-2021 Note Patient Outreach (AM [facility]) HARLEY MITCHELL ([id number]) 1950 F Date Time Provider Department 01/26/21 ASHLEY MARI During your visit today, we recorded the following information about you: Ashley Mari MA 01/26/2021 11:20 AM Signed POPULATION HEALTH NAVIGATION OUTREACH Action/FYI LVM Health Maintenance items due: ANNUAL MEDICARE WELLNESS EXAM BP CONTROLLED (<130/80) Never done COLORECTAL CANCER SCREENING Never done MAMMOGRAM due on 12/10/2019 ANNUAL PCP TEAM CHRONIC DISEASE VISIT due on 01/14/2021 NON SMOKER Contact made with patient or family member? NO Pt identified by name and : NO Outreach Outcome/Action Unable to reach patient: Left message Reason for Outreach Care Gap or Scheduling/Wellness visits Payer: Payor: MEDICARE / Plan: MEDICARE A AND B / Product Type: Medicare / Care Gap Reviewed:: Annual Wellness visit Breast Cancer screening Controlling Blood Pressure Smoking cessation ACO only Reminder: Reminder note to check Health Maintenance for items below Health Maintenance items due: COVID-19 VACCINE(1) Never done HEPATITIS C SCREENING Never done BP CONTROLLED (<130/80) Never done DTAP,TDAP,TD(1 - Tdap) Never done COLORECTAL CANCER SCREENING Never done SHINGRIX VACCINE(1 of 2) Never done DEPRESSION SCREENING due on 09/19/2019 MAMMOGRAM due on 12/10/2019 ANNUAL PCP TEAM CHRONIC DISEASE VISIT due on 01/14/2021 INFLUENZA(1) due on 01/05/2021 Advanced Directives Completed: Have you ever planned for future healthcare decisions with a power of county attorney, living will, or advance directives? Yes. Have you shared those records with your doctor? Yes Referrals: N/A Message Sent to Practice: NO Navigation Signature: Ashley Mari MA January 26, 2021 8:44 AM Allergies As of Date: 01/26/2021 Noted Allergy Reaction LISINOPRIL 02/11/2020 14 - Other: See Comments Comments: Tingling sensation. SULFA (SULFONAMIDE ANTIBIOTICS) 07/13/2005 7 - Swelling Date Reviewed: 01/26/2020 Reviewed by: Bernadette Henley Ma - Fully Assessed Reason for Visit: Population Health Navigation Outreach [3910] Cmt: ACO GWEN PCSA Prescriptions as of 01/26/2021 - amLODIPine (NORVASC) 5 mg tablet Take 1 tablet by mouth once daily. - lisinopril (ZESTRIL,PRINIVIL) 30 mg tablet Take 1 tablet by mouth once daily. - cholecalciferol, vitD3,/vit K2 (VITAMIN D3-VITAMIN K2 ORAL) Take by mouth. - calcium carbonate-vitamin D3 (OSCAL+D) 500 mg(1,250mg) -400 unit chewable tablet Take 1 tablet by mouth twice daily. Problem List As Of Date 01/26/2021 Noted Resolved Hypertension, essential [I10] 09/18/2018 Osteoporosis [M81.0] 12/11/2018 Encounter Status:Closed by ASHLEY MARI on 01/26/21 [facility] Progress note 01-26-2021 Note Date & Type Note Facility 01-26-2021 Note HNO ID: [id number] Author: Ashley Mari MA Service: ? Author Type: Animal Physiology Teacher Type: Progress Notes Filed: 01/26/2021 11:20 AM Note Text: POPULATION HEALTH NAVIGATION OUTREACH Action/FYI LVM Health Maintenance items due: ANNUAL MEDICARE WELLNESS EXAM BP CONTROLLED (<130/80) Never done COLORECTAL CANCER SCREENING Never done MAMMOGRAM due on 12/10/2019 ANNUAL PCP TEAM CHRONIC DISEASE VISIT due on 01/14/2021 NON SMOKER Contact made with patient or family member? NO Pt identified by name and : NO Outreach Outcome/Action Unable to reach patient: Left message Reason for Outreach Care Gap or Scheduling/Wellness visits Payer: Payor: MEDICARE / Plan: MEDICARE A AND B / Product Type: Medicare / Care Gap Reviewed:: Annual Wellness visit Breast Cancer screening Controlling Blood Pressure Smoking cessation ACO only Reminder: Reminder note to check Health Maintenance for items below Health Maintenance items due: COVID-19 VACCINE(1) Never done HEPATITIS C SCREENING Never done BP CONTROLLED (<130/80) Never done DTAP,TDAP,TD(1 - Tdap) Never done COLORECTAL CANCER SCREENING Never done SHINGRIX VACCINE(1 of 2) Never done DEPRESSION SCREENING due on 09/19/2019 MAMMOGRAM due on 12/10/2019 ANNUAL PCP TEAM CHRONIC DISEASE VISIT due on 01/14/2021 INFLUENZA(1) due on 01/05/2021 Advanced Directives Completed: Have you ever planned for future healthcare decisions with a power of county attorney, living will, or advance directives? Yes. Have you shared those records with your doctor? Yes Referrals: N/A Message Sent to Practice: NO Navigation Signature: Ashley Mari MA January 26, 2021 8:44 AM [facility] Clinical Note 12-29-2020 Note Date & Type Note Facility 12-29-2020 Note Patient Outreach (IN TMMN) HARLEY MITCHELL ([id number]) 1950 F Date Time Provider Department 12/29/20 ALIN CHATTERJEE During your visit today, we recorded the following information about you: Allergies As of Date: 12/29/2020 Noted Allergy Reaction LISINOPRIL 02/11/2020 14 - Other: See Comments Comments: Tingling sensation. SULFA (SULFONAMIDE ANTIBIOTICS) 07/13/2005 7 - Swelling Date Reviewed: 01/26/2020 Reviewed by: Bernadette Henley Ma - Fully Assessed Visit Diagnosis:Encounter for screening mammogram for breast cancer [Z12.31] Order(s):[facility] SCREENING [[id number]] Order #: [id number] FUTURE Prescriptions as of 01/03/2021 - amLODIPine (NORVASC) 5 mg tablet Take 1 tablet by mouth once daily. - lisinopril (ZESTRIL,PRINIVIL) 30 mg tablet Take 1 tablet by mouth once daily. - cholecalciferol, vitD3,/vit K2 (VITAMIN D3-VITAMIN K2 ORAL) Take by mouth. - calcium carbonate-vitamin D3 (OSCAL+D) 500 mg(1,250mg) -400 unit chewable tablet Take 1 tablet by mouth twice daily. Problem List As Of Date 12/29/2020 Noted Resolved Hypertension, essential [I10] 09/18/2018 Osteoporosis [M81.0] 12/11/2018 Encounter Status:Closed by EPIC, PRODUSER on 01/03/21 [facility] Evaluation note Note Date & Type Note Facility documented in this encounter [facility] Reason for referral (narrative) Diagnostic Procedure Only (Routine) - Pending Review Note Date & Type Note Facility Referral ID Status Reason Start Date Expiration Date Visits Requested Visits Authorized [id number] Pending Review Auto-Generat ed Referral 12/07/2021 01/06/2023 1 1 [facility] Summary Purpose Family History No Family History Records Found Advance Directives No Advanced Directives Records Found Additional Source Comments INFORMATION SOURCE (unrecogn ized section and content) Source Comments (unrecognize d section and content) In the event this informatio n is protected by the Federal Confidentiality of Alcohol and Drug Abuse Patient Records regulations: The Federal rules restrict any use of the information to criminally investigate or prosecute any alcohol or drug abuse patient.[facility] Care Teams (unrecognized sec tion and content) FOR RECORDS PERTAINING TO PATIENTS WHO ARE OR HAVE BEEN ENROLLED IN A CHEMICAL DEPENDENCY/SUBSTANCEABUSE PROGRAM, SOME INFORMATION MAY BE OMITTED. This clinical summary was aggregated from multiple sources. Caution should be exercised in using it in the provision of clinical care. This summary normalizes information from multiple sources, and as a consequence, information in this document may materially change the coding, format and clinical context of patient data. In addition, data may be omitted in some cases. CLINICAL DECISIONS SHOULD BE BASED ON THE PRIMARY CLINICAL RECORDS. [employer] provides no warranty or guarantee of the accuracy or completeness of information in this document.
[2023-06-04 15:24] LABS: ALB/GLOB Ratio 1.1 RATIO (0.9-2.4); AST(SGOT) 18 U/L (15-37); Alanine Aminotransfer ALT/SGPT 31 U/L (13-56); Albumin, Serum 3.9 g/dL (3.2-5.0); Alkaline Phosphatase 99 U/L (45-117); Anion Gap 8 (5-15); BUN 19 mg/dL (7-18); BUN/Creat Ratio 28.8 RATIO (10-20); Calcium,Total 9.5 mg/dL (8.5-10.1); Chloride 103 mmol/L (98-107); Creatinine, Serum 0.66 mg/dL (0.55-1.02); EST Glomerular Filtration Rate 94 mL/min (>60); Est Glom Filt Rate - Afr Amer 114 mL/min (>60); Globulin 3.6 g/dL (2.2-4.2); Glucose 102 mg/dL (74-106); Potassium 4.3 mmol/L (3.5-5.1); Protein, Total 7.5 g/dL (6.4-8.2); Sodium Level 141 mmol/L (136-145); Thyroid Stim Hormone (TSH) 2.21 uIU/mL (0.358-3.74)
== END | disposition home or self-care (01) ==
LOC: MFPLAB 12:10
PROVIDERS: PCP Family Medicine; Visit Provider Family Medicine
DX: I10 Essential (primary) hypertension (principal)
CPT/HCPCS: 36415; 80053; 84443

== ENCOUNTER → 2023-11-12 | Outpatient (CLI) | payer MEDICARE, OTHER, SELFPAY ==
--- NOTE | 2023-11-12 09:59 | BI_ITS ---
MAMMOGRAPHY - BILATERAL SCREENING REASON FOR EXAM: Female, 73 years old. Routine annual screening examination. PERTINENT HISTORY: Non-contributory. TECHNIQUE: Digital bilateral breast john paul (3D mammographic acquisition) in the CC and MLO projections. 2-D mediolateral oblique (MLO) and craniocaudad (CC) views of both breasts were obtained. CAD: Full Field Digital Mammography with Computer Added Detection was performed. COMPARISON: Comparison is made with prior study dated June 22, 2022. FINDINGS: Breast Composition: The breasts are heterogeneously dense, which may obscure small masses. There are no dominant masses or suspicious calcifications. Stable small benign-appearing bilateral axillary lymph nodes. No other significant abnormalities are identified. There has been no significant change since the prior study. BI/SCRN MAMM (CAD)W/JOHN PAUL BILAT IMPRESSION: Stable bilateral screening mammogram. Yearly follow-up mammogram recommended. (A) ASSESSMENT CATEGORY: BIRADS Category 2: Benign. A letter regarding these results will be sent to the patient by the facility within 30 days. Approximately 10% of breast cancers are not detected by mammography. A normal mammogram should not delay biopsy of a clinically suspicious abnormality. [id number] Electronically Signed: Jason Carty MD at 11:15 EDT ,
== END | disposition home or self-care (01) ==
LOC: OPBI 09:59
PROVIDERS: PCP Family Medicine; Referring Provider Nurse Practitioner Family; Visit Provider Nurse Practitioner Family
DX: Z12.31 Encounter for screening mammogram for malignant neoplasm of breast (principal)
CPT/HCPCS: 77063; 77067

== ENCOUNTER → 2024-07-07 | Outpatient (CLI) | payer MEDICARE, OTHER, SELFPAY ==
--- NOTE | 2024-07-07 11:25 | RAD_ITS ---
PROCEDURE: CHEST PA AND LATERAL REASON FOR EXAM: Atypical chest pain. TECHNIQUE: Frontal and lateral views of the chest. COMPARISON: 11/29/2021 FINDINGS: Cardiac silhouette within normal limits. Trace aortic atherosclerosis. Grossly similar minimal bibasilar likely atelectasis/scarring. No effusion or visible pneumothorax. Multilevel spondylosis. Lower thoracic and lumbar levoscoliosis and mild upper thoracic dextroscoliosis. Suspected demineralization. RAD/Chest PA and Lateral IMPRESSION: 1. No visible acute cardiopulmonary findings. If unexplained symptoms persist, consider CT. 2. Additional description as above. Reading Location: [id number]
== END | disposition home or self-care (01) ==
LOC: MTRAD 11:22
PROVIDERS: PCP Family Medicine; Referring Provider Family Medicine; Visit Provider Family Medicine
DX: R07.89 Other chest pain (principal)
CPT/HCPCS: 71046

== ENCOUNTER → 2025-01-07 | Outpatient (CLI) | payer MEDICARE, OTHER, SELFPAY ==
[2025-01-09 15:08] LABS: Immunoglobulin A 219 mg/dL (64-422)
== END | disposition home or self-care (01) ==
LOC: MFPLAB 14:24
PROVIDERS: PCP Family Medicine; Visit Provider Family Medicine
DX: R14.0 Abdominal distension (gaseous) (principal)
CPT/HCPCS: 36415; 82784; 83516; 86255